=== PATIENT | female | born 1980 | race American Indian/Alaskan Native ===

== ENCOUNTER 2017-02-09 11:00 | Outpatient (CLI) | payer OTHER | END 2017-02-09 11:01 | disposition home or self-care (01) | LOC: SLR 11:00 | PROVIDERS: ATTEND Specialist | DX: G47.30 Sleep apnea, unspecified (principal); E66.9 Obesity, unspecified; R40.0 Somnolence | CPT/HCPCS: 95810 ==

== ENCOUNTER 2018-11-23 16:16 | Emergency (ER) | payer OTHER ==
[2018-11-23 16:23] VITALS: BP 157/88
[2018-11-23] MEDS ORDERED: DECADRON IM ONE (18:03)
[2018-11-23] MEDS ORDERED: NORCO 5/325 PO ONE (18:03)
[2018-11-23] MEDS ORDERED: TRIMOX PO ONE (18:04)
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
== END 2018-11-23 18:30 | disposition home or self-care (01) ==
LOC: ED 16:16
DX: S09.8XXA Other specified injuries of head, initial encounter (principal); H72.91 Unspecified perforation of tympanic membrane, right ear; Z98.890 Other specified postprocedural states; Z79.899 Other long term (current) drug therapy; W51.XXXA Accidental striking against or bumped into by another person, initial encounter; Y93.89 Activity, other specified; Y92.89 Other specified places as the place of occurrence of the external cause; Y99.8 Other external cause status
CPT/HCPCS: 96372; 99282; J1100

== ENCOUNTER 2021-07-13 00:25 | Emergency (ER) | payer OTHER ==
[2021-07-13] MEDS ORDERED: IBUPROFEN 600 MG TAB PO ONE (03:02)
[2021-07-13] MEDS ORDERED: ACETAMINOPHEN 500 MG TAB PO ONE (03:02)
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
[2021-07-13 05:43] VITALS: BP 141/81
== END 2021-07-13 05:10 | disposition home or self-care (01) ==
LOC: ED 00:25
DX: S00.83XA Contusion of other part of head, initial encounter (principal); J18.9 Pneumonia, unspecified organism; M62.830 Muscle spasm of back; M62.838 Other muscle spasm; Z98.890 Other specified postprocedural states; V89.2XXA Person injured in unspecified motor-vehicle accident, traffic, initial encounter; Y93.89 Activity, other specified; Y92.89 Other specified places as the place of occurrence of the external cause; Y99.8 Other external cause status
CPT/HCPCS: 70486; 72125; 99283